=== PATIENT | female | born 1970 | race Caucasian/White ===

== ENCOUNTER 2024-05-06 12:20 | Outpatient (CLI) | payer BC | END 2024-05-06 12:21 | disposition home or self-care (01) | LOC: CSHMAMMO 12:20 | PROVIDERS: ATTEND Nurse Practitioner Family | DX: Z12.31 Encounter for screening mammogram for malignant neoplasm of breast (principal) | CPT/HCPCS: 77063; 77067 ==

== ENCOUNTER 2024-07-05 15:18 | Outpatient (CLI) | payer BC | END 2024-07-05 15:19 | disposition home or self-care (01) | LOC: CSHDTY/OP 15:18 | PROVIDERS: ATTEND Surgery | DX: E66.01 Morbid (severe) obesity due to excess calories (principal) | CPT/HCPCS: 97802 ==